=== PATIENT | female | born 1980 | race Two or more races ===

== ENCOUNTER 2018-08-25 19:51 | Emergency (ER) | payer MEDICAID ==
[~2018-08-25] VITALS: Ht 154.9 cm; Wt 90.7 kg
[2018-08-25 20:36] LABS: Urine Bacteria NONE SEEN /hpf (None Seen); Urine Blood 2+ /uL (Negative); Urine Specific Gravity 1.012 (1.001-1.035); Urine WBC 1 /hpf (0 - 5)
[2018-08-25 21:28] LABS: Basophils # (auto) 0.1 uL; Basophils % (auto) 0.6 % (0.0-2.0); Eosinophils # (auto) 0.1 uL; Monocytes # (auto) 0.7 uL
[2018-08-25 21:29] LABS: Eosinophils % (auto) 1.1 % (0.0-7.0); Hematocrit 42.4 % (36.0-46.0); Hemoglobin 13.9 g/dL (12.2-16.2); Lymphocytes # (auto) 2.9 uL; Mean Corpuscular Hemoglobin 26.9 pg (28.0-32.0); Mean Corpuscular Hgb Conc. 32.8 g/dL (32.0-36.0); Monocytes % (auto) 7.5 % (0.0-12.0); Neutrophils # (auto) 5.4 uL; Neutrophils % (auto) 58.8 % (37.0-80.0); Nucleated Red Blood Cells % 0.2 %; Platelet Count (auto) 260 10^3/uL (140-450); Red Blood Cells 5.17 10^6/uL (4.0-5.20); Red Cell Distribution Width 15.1 % (11.8-14.3); White Blood Cell 9.2 10^3/uL (4.4-10.8)
[2018-08-25 21:46] LABS: Albumin 3.5 g/dL (3.4-5.0); Anion Gap 10 (5-15); Blood Urea Nitrogen 12 mg/dL (7-18); Calcium 8.9 mg/dL (8.5-10.1); Carbon Dioxide 22 mmol/L (21-32); Chloride 107 mmol/L (98-107); Glucose 94 mg/dL (74-106); INR 0.94 (0.9-1.15); Magnesium 2.4 mg/dL (1.6-2.6); Partial Thromboplastin Time 28.2 sec (23.78-33.04); Potassium 3.9 mmol/L (3.5-5.1); Prothrombin Time 10.1 sec (9.27-12.13); Sodium 139 mmol/L (136-145)
[2018-08-25 21:48] LABS: BUN/Creatinine Ratio 22.6; GFR African American 166 mL/min; GFR Non-African American 137 mL/min
[2018-08-25] MEDS ORDERED: SODIUM CHLORIDE 0.9% 1,000 ML IV ONE (22:00)
[2018-08-25 22:03] LABS: Alanine Aminotransferase 42 U/L (13-56); Alkaline Phosphatase 96 U/L (45-117); Aspartate Aminotransferase 17 U/L (15-37); Bilirubin, Total 0.3 mg/dL (0.2-1.0)
[2018-08-25 22:21] VITALS: BP 119/71
[2018-08-25] MEDS ORDERED: MECLIZINE HCL 25 MG TAB PO ONE (22:45)
== END 2018-08-25 23:19 | disposition home or self-care (01) ==
LOC: ER 19:57
DX: R42 Dizziness and giddiness (principal); R11.2 Nausea with vomiting, unspecified; N92.6 Irregular menstruation, unspecified
CPT/HCPCS: 36415; 80053; 81001; 81025; 83735; 84484; 84702; 85025; 85610; 85730; 93005; 99284; J8597